=== PATIENT | female | born 1975 | race Caucasian/White ===

== ENCOUNTER 2020-06-22 21:03 | Emergency (ER) | payer OTHER, SELFPAY ==
[2020-06-22] VITALS (7 sets, daily range): BP systolic 92–124; BP diastolic 50–110; PULSE 78–172; RESP 14–31; TEMP 36.9; O2SAT 22–100
--- NOTE | ~2020-06-22 | XR_ITS ---
EXAMINATION: XR chest 1V portable EXAM DATE: 06/22/2020 21:55 INDICATION: Heart palpitations. TECHNIQUE: Portable AP frontal chest x-ray was obtained. There is no prior study for comparison. FINDINGS: Exam under penetrated due to patient's body habitus. No confluent consolidation, pneumothor ax or pleural effusion suspected. The cardiomediastinal silhouette is prominent but magnified on this AP technique. IMPRESSION: Limited exam without definite acute process. Reviewed, dictated and finalized at location A.
--- NOTE | 2020-06-22 21:11 | ED.CHESTPAIN ---
HPI - Chest Pain General Chief Complaint: Chest Pain Stated Complaint: heart racing? Time Seen by Provider: 06/22/20 21:11 Source: patient Mode of arrival: ambulatory Limitations: no limitations History of Present Illness HPI narrative: Patient is a 45-year-old female with a history of SVT who presents for evaluation of palpitations and chest pain. Patient states that palpitations started approximately 5 PM while the patient was at work. She works at a restaurant. She has had some associated diaphoresis, she denies chest pain. Patient states she has had this occur before, follows with a oil well fishing tool technician over in [place]. Patient denies taking any medications for it. She has never had any cardiac ablation. No recent illnesses. No nausea or vomiting. No current shortness of breath. Related Data Home Medications Medication Instructions Recorded Confirmed ammonium lactate TOPICAL 06/22/20 06/22/20 ergocalciferol (vitamin D2) 06/22/20 ferrous fumarate-iron ps cmplx cap PO 06/22/20 06/22/20 losartan 06/22/20 losartan 06/22/20 rosuvastatin mg 06/22/20 Allergies Allergy/AdvReac Type Severity Reaction Status Date / Time No Known Allergies Allergy Mild Verified 06/22/20 21:35 Review of Systems Review of Systems: Narrative: CONSTITUTIONAL: Denies fever, chills, or sweats. EYES: Denies visual changes CARDIOVASCULAR: Denies chest pain, reports palpitations, denies edema RESPIRATORY: Denies cough or dyspnea. GASTROINTESTINAL: Denies abdominal pain, nausea, vomiting, or diarrhea. GENITOURINARY: Denies dysuria or hematuria. SKIN: Denies rash or itching. MUSCULOSKELETAL: Denies back pain, joint pain, or myalgia. NEUROLOGIC: Denies headache, numbness, or weakness. [facility] Past Medical History Medical History (Updated 06/22/20 @ 23:19 by Debbi Farooq MD) SVT (supraventricular tachycardia) Surgical History Surgical History (Updated 06/22/20 @ 21:29 by Debbi Farooq MD) H/O: hysterectomy Social History Social History (Updated 06/22/20 @ 21:29 by Debbi Farooq MD) Smoking status: Former smoker Alcohol intake: never Substance use: never Gender identity (if verbalized by the patient): Female Sexual Orientation (if Verbalized by the Patient): Straight or Heterosexual Exam Narrative: Exam Narrative: GENERAL: Awake, alert, conversant,mildly diaphoretic HEAD: Normocephalic, atraumatic. EYES: PERRLA and EOMI. ENT: Nares clear, no rhinorrhea or epistaxis. Mucous membranes moist. NECK: Supple. CHEST: No respiratory distress, breathing even and non labored HEART: Tachycardic, rate 170s, sinus rhythm ABDOMEN:Non distended, non tender EXTREMITIES: Normal range of motion. No edema. SKIN: Warm, dry, no rash. NEURO:No focal deficits. Alert and oriented x3 Course Vital Signs Vital signs: Vital Signs Pulse Rate 171 H 06/22/20 21:09 Respiratory Rate 31 H 06/22/20 21:09 Blood Pressure 102/74 06/22/20 21:09 Pulse Oximetry 98 06/22/20 21:09 Temperature 36.9 C 06/22/20 21:29 Pulse Rate 89 06/22/20 22:53 Respiratory Rate 16 06/22/20 22:53 Blood Pressure 108/68 06/22/20 22:53 Pulse Oximetry 100 06/22/20 22:53 MDM - Chest Pain MDM Narrative Medical decision making narrative: Patient presented for evaluation of palpitations, she has a history of reported SVT and follows with a oil well fishing tool technician in [place]. The time of initial assessment, ABCs are intact, vital signs are notable for tachycardia consistent with supraventricular tachycardia and borderline hypotension. Because the patient otherwise is asymptomatic, awake, alert, did attempt Valsalva maneuver which patient was really unable to complete with good effort. We then did intravenous adenosine and the arrhythmia resolved. Patient had no recurrence. No electrolyte derangements. Troponin not obtained given known history of this and denying any pain. Given she has a history of this and already has follow-up in place
--- NOTE | 2020-06-22 21:13 | ECG_ITS ---
Measurements Intervals [place] Rate: 174 P: [place]: 0 QRS: 64 QRSD: 70 T: -9 QT: 246 QTc: 420 Interpretive Statements SUPRAVENTRICULAR TACHYCARDIA BASELINE WANDER- II, III, AVR, AVL, AVF, V1, V4-V6 ABNORMAL ECG Electronically Signed On 06-23-2020 7:29:33 CDT by Ciro Rousseau D.O.
--- NOTE | 2020-06-22 21:16 | PC.NURSE ---
DR. RICHTER AT BEDSIDE.
[2020-06-22] MEDS: ADENOSINE IV SOLN 6 MG/2 ML VIAL IV PUSH (21:23)
--- NOTE | 2020-06-22 21:24 | ECG_ITS ---
Measurements Intervals [place] Rate: 103 P: 61 [place]: 129 QRS: 68 QRSD: 81 T: 43 QT: 317 QTc: 417 Interpretive Statements SINUS TACHYCARDIA LEFT ATRIAL ENLARGEMENT BASELINE ARTIFACT- I, II, AVR, V6 BORDERLINE ECG Electronically Signed On 06-23-2020 7:30:30 CDT by Ciro Rousseau D.O.
[2020-06-22] MEDS: ONDANSETRON INJ 4 MG/2 ML VIAL (21:27)
[2020-06-22] MEDS: SODIUM CHLORIDE 0.9% IV 1,000 ML 999 ML (21:27)
[2020-06-22 21:47] LABS: Basophils Percent Auto 0.3 % (0.2-1.2); Eosinophils Percent Auto 0.4 % (0-4.4); Hematocrit 41.3 % (37.0-47.0); Immature Granulocyte Absolute 0.03 K/mm3 (0.00-0.031); Immature Granulocyte Percent A 0.3 % (0-0.5); Lymphocytes Absolute Auto 1.27 K/mm3 (0.9-3.2); Lymphocytes Percent Auto 11.9 % (18.3-44.2); Mean Corpuscular HGB Conc 31.5 g/dl (32-36); Mean Corpuscular Hemoglobin 29.5 pg (26-34); Mean Corpuscular Volume 93.7 fl (80-100); Mean Platelet Volume 11.3 fl (7.4-10.4); Monocytes Absolute Auto 0.8 K/mm3 (0.1-0.6); Monocytes Percent Auto 7.3 % (2.6-8.5); Neutrophils Absolute Auto 8.5 K/mm3 (1.3-6.7); Neutrophils Percent Auto 79.8 % (45.5-73.1); Platelet Count Result 275 k/mm3 (150-375); Red Blood Count 4.41 M/mm3 (4.2-5.4); White Blood Count 10.6 K/mm3 (4.5-10.0)
[2020-06-22 21:58] LABS: Anion Gap 15.2 mmol/L (7-16); Blood Urea Nitrogen 28 mg/dL (7-17); Calcium 9.3 mg/dL (8.4-10.2); Carbon Dioxide 21 mmol/L (22-30); Chloride 110 mmol/L (98-107); Estimated CRCL calculation 93 ml/min; Estimated Glomerular Filt Rate 53; Glucose 128 mg/dL (65-105); Potassium 4.2 mmol/L (3.4-5.0); Sodium 142 mmol/L (137-145)
[2020-06-22] MEDS: ASPIRIN 81 MG CHEWABLE TABLET 324 MG PO (22:14)
--- NOTE | 2020-06-22 23:04 | PC.NURSE ---
erp to speak with pt regarding possible discharge.
--- NOTE | 2020-06-22 23:22 | PC.NURSE ---
rn report given to
== END 2020-06-22 23:20 | disposition home or self-care (01) ==
PROVIDERS: Emergency Provider Emergency Medicine
DX: I47.1 Supraventricular tachycardia (principal); Z87.891 Personal history of nicotine dependence; R94.31 Abnormal electrocardiogram [ECG] [EKG]
CPT/HCPCS: 36415; 71045; 80048; 85025; 93005; 96361; 96374; 96375; 99284; A9270; J0153; J2405; J3010; J7030